=== PATIENT | female | born 1980 | race Caucasian/White ===

== ENCOUNTER 2016-09-06 15:53 | Emergency (ER) | payer MEDICAID ==
[~2016-09-06] VITALS: Ht 165.1 cm; Wt 65.3 kg
[~2016-09-06 15:53] MED LIST: BUTA1CAP57 PO; IBUP200T5 PO; IBUP800T PO; MELO-190 PO; NORT50CA PO; OXYC-302 PO; PREN1TAB25 PO
[2016-09-06 15:54] VITALS: BP 154/102
[2016-09-06] MEDS ORDERED: PROPARACAINE OPHTH 0.5%, 15ML ONE (16:45)
[2016-09-06] MEDS ORDERED: FLUORESCEIN OPHTHALMIC 1 MG STRIP ONE (16:45)
[2016-09-06] MEDS ORDERED: FLUORESCEIN OPHTHALMIC 1 MG STRIP EACHEYE ONE (17:00)
[2016-09-06] MEDS ORDERED: PROPARACAINE OPHTH 0.5%, 15ML EACHEYE ONE (17:00)
== END 2016-09-06 17:19 | disposition home or self-care (01) ==
LOC: ED 17:15
DX: S05.01XA Injury of conjunctiva and corneal abrasion without foreign body, right eye, initial encounter (principal); B30.9 Viral conjunctivitis, unspecified; X58.XXXA Exposure to other specified factors, initial encounter; Y93.89 Activity, other specified; Y99.8 Other external cause status; Y92.89 Other specified places as the place of occurrence of the external cause
CPT/HCPCS: 99283